=== PATIENT | male | born 1995 | race Caucasian/White ===

== ENCOUNTER 2019-05-28 15:22 | Emergency (ER) | payer SELFPAY ==
[~2019-05-28] VITALS: Ht 167.6 cm; Wt 72.7 kg
[2019-05-28 15:38] VITALS: BP 170/82
[2019-05-28] MEDS ORDERED: oxyCODONE/APAP 10/325 1 TAB TABLET PO ONE (15:45)
[2019-05-28] MEDS ORDERED: CYCLOBENZAPRINE 10 MG TABLET. PO ONE (15:45)
--- NOTE | 2019-05-28 15:58 | PHYS DOC ---
Past History Past Medical History: No Pertinent History Past Surgical History: No Surgical History Alcohol Use: None Drug Use: None Adult General Chief Complaint Chief Complaint: ABDOMINAL PAIN HPI HPI Patient is a 24-year-old male with history of constipation recurrent abdominal pain presents with midepigastric pain after eating hot potato chips yesterday. Patietn states he feels constipated nauseated and vomited multiple times. Patient is taking MiraLAX and one bottle of mag citrate without relief. Pain is described as cramping, rated moderate to severe. Pain is nonradiating. It is worse with palpation. Patient states he had similar pain multiple times usually after eating spicy foods. Denies hematemesis coffee-ground emesis, melena hematochezia. Other acute symptoms or complaints.[] Review of Systems Review of Systems ROS as per HPI All other systems were reviewed and found to be within normal limits, except as documented in this note. Current Medications Current Medications Current Medications Medications (Trade) Dose Ordered Sig/Stephany Start Time Stop Time Status Last Admin Dose Admin Cyclobenzaprine HCl (Flexeril) 10 mg 1X ONCE 05/28/19 15:45 05/28/19 15:38 DC Oxycodone/ Acetaminophen (Percocet 10/325) 1 tab 1X ONCE 05/28/19 15:45 05/28/19 15:38 DC Allergies Allergies Allergies Coded Allergies Type Severity Reaction Last Updated Verified No Known Drug Allergies 05/08/14 No Physical Exam Physical Exam Constitutional: Well developed, well nourished, moderate discomfort secondary to pain[] HENT: Normocephalic, atraumatic, bilateral external ears normal, oropharynx moist, no oral exudates, nose normal. [] Eyes: PERRLA, EOMI, conjunctiva normal, no discharge. [] Neck: Normal range of motion, no tenderness, supple, no stridor. [] Cardiovascular:Heart rate regular rhythm, no murmur [] Lungs & Thorax: Bilateral breath sounds clear to auscultation [] Abdomen: Bowel sounds normal, soft, mid abdominal pain, tenderness to palpation. [] Skin: Warm, dry, no erythema, no rash. [] Neurologic: Alert and oriented X 3, normal motor function, normal sensory function, no focal deficits noted. [] Psychologic: Affect normal, judgement normal, mood normal. [] Current Patient Data Vital Signs Vital Signs Date Time Temp Pulse Resp B/P (MAP) Pulse Ox O2 Delivery O2 Flow Rate FiO2 05/28/19 15:38 66 18 170/82 (111) 100 EKG EKG [] Radiology/Procedures Radiology/Procedures [CT abdomen pelvis: large distended gallbladde stones r, no bowel obstruction.] Course & Med Decision Making Course & Med Decision Making Pertinent Labs and Imaging studies reviewed. (See chart for details) [Patient with midepigastric abdominal pain nausea vomiting . Labs, imaging studies reviewed. Symptoms improved with treatment. No findings of bowel obstruction, appendicitis. Patient large distended gallbladder wall with stones without [place] wall thickening or pericholecystic fluid. We'll treat supportively with PCP follow-up. Return precautions reviewed.] Dragon Disclaimer Dragon Disclaimer This electronic medical record was generated, in whole or in part, using a voice recognition dictation system. Departure Departure: Impression: Primary Impression: Abdominal pain Additional Impression: Nausea and vomiting Disposition: HOME, SELF-CARE Condition: STABLE Referrals: WILLIAMS FLORENCE MD (PCP) Patient Instructions: Abdominal Pain, Nausea and Vomiting, [id number] Additional Instructions: You were evaluated in the emergency department. CT l labs were performed and are nondiagnostic. Please take nausea medication and pain medication as directed. Drink clear liquids only for the next 6-12 hours then gradually increase to bland diet as tolerated. Follow-up with your PCP in 1-2 days for reevaluation if symptoms persist. Return to the ED if new or worsening symptoms. Scripts Dicyclomine Hcl (DICYCLOMINE HCL) 10 Mg Capsule 1 CAP PO TID, #10 CAP 0 Refills Prov: KALINA PACHECO DO 05/28/19 Ondansetron Hcl (ZOFRAN) 4 Mg Tablet 1 TAB PO Q6HRS, #10 TAB Prov: KALINA PACHECO DO 05/28/19 Problem Qualifiers KALINA PACHECO DO May 28, 2019 15:58
[2019-05-28] MEDS ORDERED: IV NORMAL SALINE 1,000ML 1,000 ML IV ONE (16:15)
[2019-05-28] MEDS ORDERED: ONDANSETRON PF 4 MG/2 ML VIAL. IVP ONE (16:15)
[2019-05-28] MEDS ORDERED: FAMOTIDINE 20 MG/2 ML VIAL IVP ONE (16:15)
--- NOTE | 2019-05-28 16:25 | RAD ---
ACUTE ABDOMEN SERIES History: Abdominal pain Comparison: None. Findings: 2 supine AP views of the abdomen, single view of the chest, and single upright AP view of the abdomen are submitted. There are clips in left pelvis. Calcifications in the pelvis bilaterally may be phleboliths although would be difficult to exclude small distal left ureteral calculus on this exam. There is no lobar consolidation, pleural fluid, or pneumothorax. No free air is identified. There is air-fluid level in the stomach. Bowel is not significantly dilated. Impression: 1. Small calcification in the left pelvis may be a phlebolith unless there is suspicion for distal ureteral calculus. There is a nonobstructive bowel gas pattern. Electronically signed by: Oscar Bacon MD (05/28/2019 4:22 PM) [facility]
[2019-05-28] MEDS ORDERED: IOHEXOL 300 MG/ML 75 ML VIAL. IV ONE (16:30)
[2019-05-28 16:54] LABS: BASO % 0 % (0-3); EOS % 0 % (0-3); HEMATOCRIT 43.9 % (39.0-53.0); LYMPH # 1.2 x10^3/uL (1.0-4.8); LYMPH % 8 % (24-48); MEAN CORPUSCULAR HEMOGLOBIN 30 pg (25-35); MEAN CORPUSCULAR HGB CONC 34 g/dL (31-37); MEAN CORPUSCULAR VOLUME 89 fL (79-100); MONO # 0.4 x10^3/uL (0.0-1.1); MONO % 3 % (0-9); NEUT # 13.1 x10^3uL (1.8-7.7); NEUT % 89 % (31-73); PLATELET COUNT 332 x10^3/uL (140-400); RED BLOOD COUNT 4.95 x10^6/uL (4.30-5.70); RED CELL DISTRIBUTION WIDTH 12.6 % (11.5-14.5); WHITE BLOOD COUNT 14.7 x10^3/uL (4.0-11.0)
[2019-05-28 16:55] LABS: CALCIUM 8.9 mg/dL (8.5-10.1); CREATININE 0.9 mg/dL (0.7-1.3); GFR 103.7; POTASSIUM 3.5 mmol/L (3.5-5.1)
[2019-05-28 17:01] LABS: ALBUMIN 4.5 g/dL (3.4-5.0); ALBUMIN/GLOBULIN RATIO 1.3 (1.0-1.7); TOTAL BILIRUBIN 0.6 mg/dL (0.2-1.0); TOTAL PROTEIN 7.9 g/dL (6.4-8.2)
--- NOTE | 2019-05-28 17:12 | RAD ---
Exam: CT of abdomen and pelvis with contrast INDICATION: Abdominal pain TECHNIQUE: Sequential axial images through the abdomen and pelvis obtained following the administration of 75 mL of Omni 300 IV contrast. Sagittal and coronal reformatted images were reconstructed from the axial data and reviewed. Comparisons: None FINDINGS: Heart size is normal. No pericardial effusion. Visualized lung bases are clear. No pleural effusion. Liver, spleen, pancreas and adrenals are unremarkable. Gallbladder is distended with several gallstones noted. There is mild intrahepatic biliary ductal dilatation. Kidneys demonstrate symmetric enhancement. No perinephric inflammation or hydronephrosis. No renal or ureteral calculi are identified. Bladder is partially distended and appears unremarkable. Prostate is nonenlarged. Large and small bowel are unremarkable. Appendix is normal. No free intra-abdominal air or fluid. Abdominal aorta has a normal course and caliber. Abdominal vasculature is patent. No enlarged intra-abdominal lymph nodes are identified. No suspicious osseous lesions or acute fractures. IMPRESSION: 1. Gallbladder is distended with gallstones. Correlate with symptomatology to determine the need for ultrasound or HIDA scan for further evaluation. 2. Normal appendix. Exposure: One or more of the following in the visualized dose reduction techniques were utilized for this examination: 1. Automated exposure control 2. Adjustment of the MA and/or KV according to patient size 3. Use of iterative of reconstructive technique Electronically signed by: Paul Hutchins MD (05/28/2019 5:10 PM) [id number]
[2019-05-28] MEDS ORDERED: HALOPERIDOL LACT 5 MG/ML VIAL. IVP ONE (17:45)
[2019-05-28] MEDS ORDERED: DICY10CA3 PO (18:13)
[2019-05-28] MEDS ORDERED: ONDA4TAB7 PO (18:13)
[2019-05-28] MEDS ORDERED: KETOROLAC 30 MG/ML VIAL. IVP ONE (18:15)
== END 2019-05-28 18:18 | disposition home or self-care (01) ==
LOC: ER 15:22
DX: R10.13 Epigastric pain (principal); R11.2 Nausea with vomiting, unspecified; K59.00 Constipation, unspecified; R00.2 Palpitations
CPT/HCPCS: 36415; 74022; 74177; 80053; 83690; 85025; 96361; 96374; 96375; 99285; J2405; J3010; J3490; Q9967; J7030

== ENCOUNTER 2019-05-31 09:49 | Emergency (ER) | payer SELFPAY ==
[~2019-05-31] VITALS: Ht 167.6 cm; Wt 68.4 kg
[~2019-05-31 09:49] MED LIST: DICY10CA3 PO; ONDA4TAB7 PO
[2019-05-31] MEDS ORDERED: IV NORMAL SALINE 1,000ML 1,000 ML IV SCH (10:02)
--- NOTE | 2019-05-31 10:07 | PHYS DOC ---
Past History Past Medical History: No Pertinent History Past Surgical History: Other Additional Past Surgical Histo: varicele Alcohol Use: None Drug Use: None Adult General Chief Complaint Chief Complaint: ABDOMINAL PAIN HPI HPI Patient is a 24-year-old male who presented to ER today for evaluation of right upper quadrant abdominal pain associated with nausea off and on for several weeks, patient was seen here 3 days ago for the same problem, CT scan of his abdomen and pelvic show a distended gallbladder, patient elected to go home. Patient continued to have more pain earlier this morning, associated with some nausea. Patient denies any fever. Patient therefore came back here for further evaluation. Patient denies any diarrhea, no chest pain, no cough, no trouble breathing. All other ROS is negative unless otherwise noted in HPI Review of Systems Review of Systems See above Allergies Allergies Allergies Coded Allergies Type Severity Reaction Last Updated Verified No Known Drug Allergies 05/31/19 No Physical Exam Physical Exam See above Constitutional: Well developed, well nourished, no acute distress, non-toxic appearance. [] HENT: Normocephalic, atraumatic, bilateral external ears normal, oropharynx moist, no oral exudates, nose normal. [] Eyes: PERRLA, EOMI, conjunctiva normal, no discharge. [] Neck: Normal range of motion, no tenderness, supple, no stridor. [] Cardiovascular:Heart rate regular rhythm, no murmur [] Lungs & Thorax: Bilateral breath sounds clear to auscultation [] Abdomen: Bowel sounds normal, soft, There is tenderness to palpation in RUQ area, no masses, no pulsatile masses. [] Skin: Warm, dry, no erythema, no rash. [] Back: No tenderness, no CVA tenderness. [] Extremities: No tenderness, no cyanosis, no clubbing, ROM intact, no edema. [] Neurologic: Alert and oriented X 3, normal motor function, normal sensory function, no focal deficits noted. [] Psychologic: Affect normal, judgement normal, mood normal. [] EKG EKG [] Radiology/Procedures Radiology/Procedures [][address] [address] IMAGING REPORT Signed PATIENT: CAPO JIMENEZ ACCOUNT: [id number] : 1995 LOCATION: ER AGE: 24 SEX: M EXAM STATUS: REG ER ORD. PHYSICIAN: JANIS CURRAN DO REASON: ruq abdominal pain PROCEDURE: ABDOMEN LTD STUDY: Realtime grayscale and color Doppler ultrasonography of the right upper quadrant INDICATION: Right upper quadrant pain. COMPARISON: CT abdomen/pelvis 05/28/2019 Findings: The gallbladder is distended and filled with heterogeneous debris and gallstones. The wall is thickened and edematous measuring approximately 4.5 mm. Note is also made that the common bile duct is abnormally dilated measuring 6 mm in the region of the pancreatic head and up to 1 cm at the buster hepatis. The common duct wall is not overtly thickened and no debris or choledocholithiasis is well seen. Mild central intrahepatic biliary prominence. No focal hepatic parenchymal abnormality. The main portal vein is patent with hepatopedal flow. The adequately evaluated portion of the pancreas is unremarkable. The inferior vena cava at the liver is normal. Normal size and echogenicity of the right kidney. No hydronephrosis. Impression: Abnormal gallbladder with the lumen distended with gallstones and heterogeneous debris. The wall is thickened and edematous. The sonographic appearance is highly suggestive of acute cholecystitis. Note is also made that the common bile duct is pathologically dilated measuring up to 1 cm at the buster hepatis and approximately 6 mm in the region of the pancreatic head. No obvious debris or choledocholithiasis is appreciated. Reactive dilatation to cholecystitis is a consideration though an obstructing choledocholithiasis is not excluded or potentially superimposed cholangitis. Recommend correlation with bilirubin levels. Electronically signed by: LUCINDA MACARIO MD (05/31/2019 10:53 AM) [id number] DICTATED AND SIGNED BY: LUCINDA MACARIO MD DATE: 05/31/19 1053 CC: PCP,NO; JANIS CURRAN DO ~ Course & Med Decision Making Course & Med Decision Making Pertinent Labs and Imaging studies reviewed. (See chart for details) Ultrasound of abdomen showed gallstones and gallbladder wall thickening consistent with acute cholecystitis. There is no surgery service available at this hospital. Patient will be transferred to [facility]. Javier wadsworth and his family were given instruction, plan of care, diagnostic workup results, patient is amenable to plan of care. Dragon Disclaimer Dragon Disclaimer This electronic medical record was generated, in whole or in part, using a voice recognition dictation system. Departure Departure: Impression: Primary Impression: Acute cholecystitis Disposition: [facility] ([facility], accepted by Dr. Bethea) Condition: STABLE Referrals: PCP,NO (PCP) JANIS CURRAN DO May 31, 2019 10:07
[2019-05-31] MEDS ORDERED: KETOROLAC 30 MG/ML VIAL. ONE (10:08)
[2019-05-31] MEDS ORDERED: ONDANSETRON PF 4 MG/2 ML VIAL. IVP ONE (10:15)
[2019-05-31] MEDS ORDERED: KETOROLAC 30 MG/ML VIAL. IVP ONE (10:15)
[2019-05-31 10:31] LABS: BASO # 0.1 x10^3/uL (0.0-0.2); BASO % 1 % (0-3); EOS # 0.1 x10^3/uL (0.0-0.7); EOS % 1 % (0-3); HEMATOCRIT 40.5 % (39.0-53.0); LYMPH # 1.7 x10^3/uL (1.0-4.8); LYMPH % 20 % (24-48); MEAN CORPUSCULAR HEMOGLOBIN 31 pg (25-35); MEAN CORPUSCULAR HGB CONC 35 g/dL (31-37); MEAN CORPUSCULAR VOLUME 88 fL (79-100); MONO # 0.7 x10^3/uL (0.0-1.1); MONO % 8 % (0-9); NEUT # 6.3 x10^3uL (1.8-7.7); NEUT % 71 % (31-73); PLATELET COUNT 267 x10^3/uL (140-400); RED BLOOD COUNT 4.59 x10^6/uL (4.30-5.70); RED CELL DISTRIBUTION WIDTH 12.8 % (11.5-14.5); WHITE BLOOD COUNT 8.9 x10^3/uL (4.0-11.0)
[2019-05-31 10:34] LABS: CALCIUM 8.7 mg/dL (8.5-10.1); GFR 91.8; POTASSIUM 4.1 mmol/L (3.5-5.1)
[2019-05-31 10:40] LABS: ALBUMIN 3.6 g/dL (3.4-5.0); ALBUMIN/GLOBULIN RATIO 1.2 (1.0-1.7); TOTAL BILIRUBIN 0.6 mg/dL (0.2-1.0); TOTAL PROTEIN 6.6 g/dL (6.4-8.2)
--- NOTE | 2019-05-31 10:56 | RAD ---
STUDY: Realtime grayscale and color Doppler ultrasonography of the right upper quadrant INDICATION: Right upper quadrant pain. COMPARISON: CT abdomen/pelvis 05/28/2019 Findings: The gallbladder is distended and filled with heterogeneous debris and gallstones. The wall is thickened and edematous measuring approximately 4.5 mm. Note is also made that the common bile duct is abnormally dilated measuring 6 mm in the region of the pancreatic head and up to 1 cm at the buster hepatis. The common duct wall is not overtly thickened and no debris or choledocholithiasis is well seen. Mild central intrahepatic biliary prominence. No focal hepatic parenchymal abnormality. The main portal vein is patent with hepatopedal flow. The adequately evaluated portion of the pancreas is unremarkable. The inferior vena cava at the liver is normal. Normal size and echogenicity of the right kidney. No hydronephrosis. Impression: Abnormal gallbladder with the lumen distended with gallstones and heterogeneous debris. The wall is thickened and edematous. The sonographic appearance is highly suggestive of acute cholecystitis. Note is also made that the common bile duct is pathologically dilated measuring up to 1 cm at the buster hepatis and approximately 6 mm in the region of the pancreatic head. No obvious debris or choledocholithiasis is appreciated. Reactive dilatation to cholecystitis is a consideration though an obstructing choledocholithiasis is not excluded or potentially superimposed cholangitis. Recommend correlation with bilirubin levels. Electronically signed by: LUCINDA MACARIO MD (05/31/2019 10:53 AM) [id number]
[2019-05-31 11:04] LABS: % BANDS 2 % (0-9); % BASOS 1 % (0-3); % LYMPHS 15 % (24-48); % MONOS 10 % (0-10); % SEGS 72 % (35-66)
[2019-05-31 11:06] LABS: PLT ESTIMATE ADEQUATE (ADEQUATE)
[2019-05-31] MEDS ORDERED: PIPERACILLIN/TAZOBACTAM 3.375 GM in IV NORMAL SALINE 50ML 50 ML IV ONE (11:30)
[2019-05-31] MEDS ORDERED: IV NORMAL SALINE 50ML 50 ML ONE (11:39)
[2019-05-31] MEDS ORDERED: PIPERACILLIN/TAZOBACTAM 3.375 GM VIAL IV ONE (11:40)
[2019-05-31 12:05] VITALS: BP 122/66
== END 2019-05-31 12:30 | disposition short-term general hospital (02) ==
LOC: ER 09:49
DX: K81.0 Acute cholecystitis (principal); R10.11 Right upper quadrant pain; R11.0 Nausea; Z98.890 Other specified postprocedural states
CPT/HCPCS: 36415; 76705; 80053; 83690; 85007; 85025; 96365; 96375; 99285; J1885; J2405; J2543; J7030